=== PATIENT | male | born 1945 | race Caucasian/White ===

== ENCOUNTER 2019-04-20 15:52 | Inpatient (IN) | payer MEDICARE ==
[~2019-04-20] VITALS: Ht 170.2 cm; Wt 74.7 kg
[2019-04-20] MEDS ORDERED: ACETAMINOPHEN 500 MG TABLET ONE (16:02)
--- NOTE | 2019-04-20 16:08 | NUR ---
THIS IS A 73 YO M BIB [facility] FROM [facility] WITH C/O LEFT SIDED WEAKNESS X3 DAYS. [facility] REPORTS HGB OF 7. PATIENT IS IN NO ACUTE DISTRESS. EVEN, UNLABORED BREATHS. CURRENTLY RESTING ON [facility] WITH CALL [facility] IN REACH.
[2019-04-20] MEDS ORDERED: SODIUM CHLORIDE FLUSH 10ML SYR IVF ONE (16:30)
[2019-04-20] MEDS ORDERED: PLEASE ENTER ALLERGIES MC SCH (16:30)
[2019-04-20] MEDS ORDERED: SODIUM CHLORIDE 0.9% 1,000ML IVBOLUS ONE (16:30)
[2019-04-20] MEDS ORDERED: ACETAMINOPHEN 500 MG TABLET PO ONE (16:30)
[2019-04-20] MEDS ORDERED: GADOTERATE 10 MMOL/20 ML SYR ONE (16:41)
[2019-04-20 16:43] LABS: INTERNATIONAL NORMALIZED RATIO 1.11 (0.93-1.1); PROTHROMBIN TIME 11.6 Seconds (9.6-11.5)
[2019-04-20 16:46] LABS: ALANINE AMINOTRANSFERASE 27 U/L (12-78); ANION GAP 6 mmol/L (5-15); BILIRUBIN, DIRECT 0.6 mg/dL (0.1-0.2); CALCIUM 9.3 mg/dL (8.5-10.1); CHLORIDE 106 mmol/L (98-107)
[2019-04-20 16:49] LABS: ALKALINE PHOSPHATASE 129 U/L (45-117); BILIRUBIN,INDIRECT 5.2 mg/dL (0.0-2.0); BILIRUBIN,TOTAL 5.8 mg/dL (0.2-1.0); CREATININE 0.71 mg/dL (0.7-1.3); TOTAL PROTEIN 7.2 g/dL (6.4-8.2)
[2019-04-20] MEDS ORDERED: OMNIPAQUE 350 MG/ML, 100ML BOTTLE ONE (17:27)
[2019-04-20] MEDS ORDERED: MULT-717 PO (17:39)
[2019-04-20] MEDS ORDERED: CHOL200074 PO (17:40)
--- NOTE | 2019-04-20 17:50 | NUR ---
URINE COLLECTED AND WALKED TO LAB.
[2019-04-20 18:01] LABS: MICROSCOPIC AUTO
--- NOTE | 2019-04-20 18:01 | NUR ---
VS UPDATED. PT RESTING WITH NO COMPLAINTS.
[2019-04-20 18:05] LABS: CULTURE INDICATED? YES
--- NOTE | 2019-04-20 18:10 | NUR ---
DR. HAYDEN AT BEDSIDE.
[2019-04-20] MEDS ORDERED: DEXAMETHASONE 4 MG/ML, 1ML ONE (18:19)
--- NOTE | 2019-04-20 18:22 | NUR ---
PHARMACY REQUEST SLIP SENT TO PHARMACY FOR DILANTIN. DECADRON IVP GIVEN.
--- NOTE | 2019-04-20 18:26 | NUR ---
SISTER- ELIANE [phone]
[2019-04-20] MEDS ORDERED: FILTER 0.22 MICRON FOR PHENYTOIN IV PRN (18:30)
[2019-04-20] MEDS ORDERED: DEXAMETHASONE 4 MG/ML, 1ML IVPush ONE (18:30)
[2019-04-20 18:48] LABS: MD YES; MEAN CORPUSCULAR HEMOGLOBIN 33.9 pg (27.5-34.5); MEAN CORPUSCULAR VOLUME 96.8 fL (81-97); RED BLOOD COUNT 1.86 x10^6/uL (4.38-5.82); RED CELL DISTRIBUTION WIDTH 17.7 % (9.4-14.8)
--- NOTE | 2019-04-20 18:49 | NUR ---
ADMITTING MD AT BEDSIDE.
[2019-04-20 18:58] LABS: MEAN PLATELET VOLUME 7.5 fL (7.4-10.4); PLATELET COUNT 257 x10^3/uL (130-400)
[2019-04-20] MEDS ORDERED: PHENYTOIN SODIUM 1,000 MG in SODIUM CHLORIDE 0.9% 100 ML IV ONE (19:00)
[2019-04-20 19:02] LABS: RED BLOOD COUNT 1.86 x10^6/uL (4.38-5.82)
[2019-04-20 19:03] LABS: ABSOLUTE RETICS # 0.106 x10^6/uL (0.5-1.5); RETICULOCYTE COUNT % 5.71 % (0.5-1.5)
[2019-04-20 19:07] LABS: BAND#(MANUAL) 0.26 x10^3/uL; BANDS%(MANUAL) 4 % (0-7); LYMPH#(MANUAL) 0.85 x10^3/uL (1-3.4); LYMPHS% (MANUAL) 13 % (22-44); MONOS#(MANUAL) 0.59 x10^3/uL (0.3-2.7); MONOS% (MANUAL) 9 % (2-9); SEG#(MANUAL) 4.81 x10^3/uL (1.8-6.8); SEGS% (MANUAL) 74 % (42-75)
[2019-04-20 19:08] LABS: <PLATELET ESTIMATE> ADEQUATE; <PLT MORPHOLOGY> NORMAL PLT MORPH; ANISOCYTOSIS 1+; HYPOCHROMIA 1+; MICROCYTOSIS 1+; POLYCHROMASIA 1+; ROULEAUX 1+
--- NOTE | 2019-04-20 19:18 | NUR ---
[facility] TELEPHONE HAND-OFF REPORT TO JUAN ALBERTO BERTRAND.
[2019-04-20] MEDS ORDERED: ONDANSETRON 2MG/ML, 2ML IVPush PRN (19:30)
--- NOTE | 2019-04-20 19:37 | NUR ---
Senait grover rn, updated that pt will receive 1 unit warm blood instead of [address] magdaleno
[2019-04-20 19:59] VITALS: BP 112/62
[2019-04-20 20:18] LABS: D-DIMER 0.97 ug/mlFEU (0.00-0.52); INTERNATIONAL NORMALIZED RATIO 1.15 (0.93-1.1)
[2019-04-20 20:45] VITALS: BP 120/69
[2019-04-20 20:53] LABS: MD YES; MEAN CORPUSCULAR HEMOGLOBIN 33.9 pg (27.5-34.5); MEAN CORPUSCULAR HGB CONC 34.7 g/dL (33.2-36.2); MEAN CORPUSCULAR VOLUME 97.7 fL (81-97); MEAN PLATELET VOLUME 7.8 fL (7.4-10.4); PLATELET COUNT 247 x10^3/uL (130-400); RED BLOOD COUNT 1.91 x10^6/uL (4.38-5.82); RED CELL DISTRIBUTION WIDTH 18.1 % (9.4-14.8)
[2019-04-20] MEDS: PHENYTOIN SODIUM 50 MG/ML, 2ML IVPush SCH (20:57)
[2019-04-20 21:03] LABS: ANISOCYTOSIS 1+; BAND#(MANUAL) 0.22 x10^3/uL; BANDS%(MANUAL) 3 % (0-7); BASOS#(MANUAL) 0.07 x10^3/uL (0-0.1); BASOS% (MANUAL) 1 % (0-1); HYPOCHROMIA 1+; LYMPH#(MANUAL) 1.17 x10^3/uL (1-3.4); LYMPHS% (MANUAL) 16 % (22-44); MICROCYTOSIS 1+; MONOS#(MANUAL) 0.51 x10^3/uL (0.3-2.7); MONOS% (MANUAL) 7 % (2-9); SEG#(MANUAL) 5.33 x10^3/uL (1.8-6.8); SEGS% (MANUAL) 73 % (42-75)
[2019-04-20 21:04] LABS: <PLATELET ESTIMATE> ADEQUATE; <PLT MORPHOLOGY> NORMAL PLT MORPH; POLYCHROMASIA 1+
[2019-04-20 22:20] VITALS: BP 118/68
[2019-04-20 22:35] VITALS: BP 116/65
[2019-04-20 22:50] VITALS: BP 119/70
[2019-04-20 23:40] VITALS: BP 115/63
[2019-04-21 01:40] VITALS: BP 118/68
[2019-04-21] MEDS: DEXAMETHASONE 4 MG/ML, 1ML IVPush SCH ×4 (01:48→19:22)
[2019-04-21 04:33] LABS: ANION GAP 5 mmol/L (5-15); CALCIUM 9.1 mg/dL (8.5-10.1); CHLORIDE 109 mmol/L (98-107); CREATININE 0.68 mg/dL (0.7-1.3)
[2019-04-21 05:02] LABS: ABSOLUTE RETICS # 0.048 x10^6/uL (0.5-1.5); RETICULOCYTE COUNT % 5.61 % (0.5-1.5)
[2019-04-21 06:09] LABS: MEAN CORPUSCULAR HEMOGLOBIN 33.2 pg (27.5-34.5); MEAN CORPUSCULAR HGB CONC 34.5 g/dL (33.2-36.2); MEAN CORPUSCULAR VOLUME 96.1 fL (81-97); MEAN PLATELET VOLUME 8.1 fL (7.4-10.4); PLATELET COUNT 200 x10^3/uL (130-400); RED BLOOD COUNT 2.32 x10^6/uL (4.38-5.82); RED CELL DISTRIBUTION WIDTH 17.1 % (9.4-14.8)
[2019-04-21 06:11] LABS: MD YES
[2019-04-21 06:13] LABS: ANISOCYTOSIS 1+; BAND#(MANUAL) 0.17 x10^3/uL; BANDS%(MANUAL) 3 % (0-7); HYPOCHROMIA 1+; LYMPHS% (MANUAL) 7 % (22-44); MICROCYTOSIS 1+; MONOS#(MANUAL) 0.29 x10^3/uL (0.3-2.7); MONOS% (MANUAL) 5 % (2-9); POLYCHROMASIA 1+; SEG#(MANUAL) 4.85 x10^3/uL (1.8-6.8); SEGS% (MANUAL) 85 % (42-75)
[2019-04-21 06:14] LABS: <PLATELET ESTIMATE> ADEQUATE; <PLT MORPHOLOGY> NORMAL PLT MORPH
[2019-04-21 06:16] LABS: RED BLOOD COUNT 2.32 x10^6/uL (4.38-5.82)
[2019-04-21 07:31] VITALS: BP 129/62
[2019-04-21] MEDS: PHENYTOIN SODIUM 50 MG/ML, 2ML IVPush SCH ×2 (07:48→21:16)
[2019-04-21 13:18] VITALS: BP 117/58
[2019-04-21] MEDS ORDERED: MIDAZOLAM 1 MG/ML, 5ML ONE (13:48)
[2019-04-21] MEDS ORDERED: FLUMAZENIL 0.1 MG/1 ML, 5ML ONE (13:48)
[2019-04-21] MEDS ORDERED: FENTANYL PF 100 MCG/2ML ONE (13:48)
[2019-04-21] MEDS ORDERED: NALOXONE 1 MG/ML, 2ML ONE (13:48)
[2019-04-21 19:51] VITALS: BP 109/49
[2019-04-22 02:03] VITALS: BP 118/59
[2019-04-22] MEDS: DEXAMETHASONE 4 MG/ML, 1ML IVPush SCH ×4 (02:08→20:26)
[2019-04-22 04:48] LABS: CHLORIDE 108 mmol/L (98-107)
[2019-04-22 04:55] LABS: ALANINE AMINOTRANSFERASE 22 U/L (12-78); ALBUMIN 3.6 g/dL (3.4-5.0); ALKALINE PHOSPHATASE 110 U/L (45-117); ANION GAP 4 mmol/L (5-15); BILIRUBIN,TOTAL 2.3 mg/dL (0.2-1.0); TOTAL PROTEIN 6.8 g/dL (6.4-8.2)
[2019-04-22 05:47] LABS: MEAN CORPUSCULAR HEMOGLOBIN 32.6 pg (27.5-34.5); MEAN CORPUSCULAR HGB CONC 32.9 g/dL (33.2-36.2); MEAN CORPUSCULAR VOLUME 99.1 fL (81-97); MEAN PLATELET VOLUME 8.6 fL (7.4-10.4); PLATELET COUNT 197 x10^3/uL (130-400); RED BLOOD COUNT 2.33 x10^6/uL (4.38-5.82)
[2019-04-22 06:07] LABS: MD YES
[2019-04-22 06:08] LABS: RED CELL DISTRIBUTION WIDTH 17.2 % (9.4-14.8)
[2019-04-22 06:09] LABS: MONOS#(MANUAL) 0.49 x10^3/uL (0.3-2.7); MONOS% (MANUAL) 5 % (2-9)
[2019-04-22 06:10] LABS: ANISOCYTOSIS 1+; HYPOCHROMIA 1+; LYMPH#(MANUAL) 0.29 x10^3/uL (1-3.4); LYMPHS% (MANUAL) 3 % (22-44); MICROCYTOSIS 1+; POLYCHROMASIA 1+; SEG#(MANUAL) 8.92 x10^3/uL (1.8-6.8); SEGS% (MANUAL) 92 % (42-75)
[2019-04-22 06:11] LABS: <PLATELET ESTIMATE> ADEQUATE; <PLT MORPHOLOGY> NORMAL PLT MORPH
[2019-04-22 06:48] VITALS: BP 136/63
[2019-04-22] MEDS: FOLIC ACID 1 MG TABLET PO SCH (09:40)
[2019-04-22] MEDS: PHENYTOIN SODIUM 50 MG/ML, 2ML IVPush SCH ×2 (10:14→20:26)
[2019-04-22 13:31] VITALS: BP 118/73
[2019-04-22] MEDS ORDERED: GADOTERATE 10 MMOL/20 ML SYR ONE (18:46)
[2019-04-22 19:32] VITALS: BP 128/66
[2019-04-23] MEDS: DEXAMETHASONE 4 MG/ML, 1ML IVPush SCH ×4 (02:10→21:00)
[2019-04-23 02:22] VITALS: BP 125/69
[2019-04-23 06:47] VITALS: BP 140/66
[2019-04-23] MEDS: FOLIC ACID 1 MG TABLET PO SCH (09:00)
[2019-04-23 09:10] LABS: INTERNATIONAL NORMALIZED RATIO 1.02 (0.93-1.1); PROTHROMBIN TIME 10.7 Seconds (9.6-11.5)
[2019-04-23 09:13] LABS: ALBUMIN 3.6 g/dL (3.4-5.0); ANION GAP 4 mmol/L (5-15); CALCIUM 9.2 mg/dL (8.5-10.1); CHLORIDE 109 mmol/L (98-107)
[2019-04-23] MEDS: PHENYTOIN SODIUM 50 MG/ML, 2ML IVPush SCH ×2 (09:14→22:08)
[2019-04-23 09:16] LABS: ALANINE AMINOTRANSFERASE 22 U/L (12-78); ALKALINE PHOSPHATASE 122 U/L (45-117); BILIRUBIN,TOTAL 1.7 mg/dL (0.2-1.0); CREATININE 0.71 mg/dL (0.7-1.3); TOTAL PROTEIN 6.6 g/dL (6.4-8.2)
[2019-04-23] MEDS ORDERED: MIDAZOLAM 1 MG/ML, 5ML ONE (09:44)
[2019-04-23] MEDS ORDERED: FENTANYL PF 100 MCG/2ML ONE (09:44)
[2019-04-23] MEDS ORDERED: FLUMAZENIL 0.1 MG/1 ML, 5ML ONE (09:45)
[2019-04-23] MEDS ORDERED: NALOXONE 1 MG/ML, 2ML ONE (09:45)
[2019-04-23 09:47] LABS: MEAN CORPUSCULAR HEMOGLOBIN 32.7 pg (27.5-34.5); MEAN CORPUSCULAR HGB CONC 33.9 g/dL (33.2-36.2); MEAN CORPUSCULAR VOLUME 96.5 fL (81-97); RED BLOOD COUNT 2.33 x10^6/uL (4.38-5.82); RED CELL DISTRIBUTION WIDTH 16.9 % (9.4-14.8)
[2019-04-23 09:49] LABS: <PLT MORPHOLOGY> NORMAL PLT MORPH; ANISOCYTOSIS 1+; BASOPHILS # (AUTO) 0.02 x10^3/uL (0-0.1); BASOPHILS % (AUTO) 0 % (0-1); EOSINOPHILS % (AUTO) 0 % (1-7); HYPOCHROMIA 1+; LYMPHOCYTES # (AUTO) 1.19 x10^3/uL (1-3.4); LYMPHOCYTES % (AUTO) 14 % (22-44); MD MORPH REVIEW ONLY; MEAN PLATELET VOLUME 8.4 fL (7.4-10.4); MONOCYTES # (AUTO) 0.57 x10^3/uL (0.2-0.8); MONOCYTES % (AUTO) 7 % (2-9); NEUTROPHILS # (AUTO) 6.63 x10^3/uL (1.8-6.8); NEUTROPHILS % (AUTO) 79 % (42-75); POLYCHROMASIA 1+
[2019-04-23 09:58] LABS: <PLATELET ESTIMATE> DECREASED; PLATELET COUNT 105 x10^3/uL (130-400)
[2019-04-23 12:03] VITALS: BP 122/64
[2019-04-23 15:13] VITALS: BP 128/66
[2019-04-23] MEDS ORDERED: FENTANYL PF 250 MCG/5ML ONE ×2 (15:23→18:15)
[2019-04-23 15:37] VITALS: BP 124/59
[2019-04-23] MEDS ORDERED: THROMBIN 5,000 UNIT VIAL TP ONE (16:28)
[2019-04-23] MEDS ORDERED: BUPIVACAINE/PF 0.5% ONE (16:28)
[2019-04-23] MEDS ORDERED: BACITRACIN 50,000 UNIT ONE (16:29)
[2019-04-23] MEDS ORDERED: EPINEPHRINE 1 MG/ML, 1ML ONE (16:29)
[2019-04-23] MEDS ORDERED: MANNITOL PMX 20% 500 ML ONE (17:15)
[2019-04-23] MEDS ORDERED: LIDOCAINE 2% 100MG/5ML SYRINGE ONE (17:18)
[2019-04-23] MEDS ORDERED: hydrALAzine 20 MG/ML, 1ML ONE (17:18)
[2019-04-23] MEDS ORDERED: LEVETIRACETAM 1,000 MG in SODIUM CHLORIDE 0.9% 100 ML IV STA (18:11)
[2019-04-23] MEDS ORDERED: FENTANYL PF 100 MCG/2ML IV PRN (19:00)
[2019-04-23] MEDS ORDERED: HYDROmorphone 2 MG/ML, 1ML IVPush PRN (19:00)
[2019-04-23] MEDS ORDERED: ALBUTEROL/IPRATROPIUM 2.5MG/0.5MG, 3 ML NPPB PRN (19:00)
[2019-04-23] MEDS ORDERED: OXYcodone 5 MG/5 ML ORAL.SOL UDC PO PRN (19:00)
[2019-04-23] MEDS ORDERED: PROMETHAZINE 25 MG/ML, 1ML IV PRN (19:00)
[2019-04-23] MEDS ORDERED: LABETALOL 5MG/ML, 20ML IV PRN (19:00)
[2019-04-23] MEDS ORDERED: ACETAMINOPHEN 325 MG TABLET PO PRN (19:00)
[2019-04-23] MEDS ORDERED: hydrALAzine 20 MG/ML, 1ML IV PRN (19:00)
[2019-04-23] MEDS ORDERED: MIDAZOLAM 1 MG/ML, 2ML IV PRN (19:00)
[2019-04-23] MEDS ORDERED: ROCURONIUM 10MG/ML,5ML ONE (20:09)
[2019-04-23] MEDS ORDERED: PROPOFOL 10 MG/ML, 20ML ONE (20:09)
[2019-04-23] MEDS ORDERED: CEFAZOLIN 1,000 MG ONE (20:09)
[2019-04-23] MEDS ORDERED: NEOSTIGMINE 1 MG/ML, 10ML ONE (20:09)
[2019-04-23] MEDS ORDERED: ONDANSETRON 2MG/ML, 2ML ONE (20:09)
[2019-04-23] MEDS ORDERED: DEXAMETHASONE 4 MG/ML, 1ML ONE (20:09)
[2019-04-23] MEDS ORDERED: GLYCOPYRROLATE 0.2MG/1ML, 5ML ONE (20:09)
[2019-04-23] MEDS ORDERED: CEFAZOLIN 1,000 MG IM SCH ×2 (20:30)
[2019-04-23] MEDS: DEXAMETHASONE 4 MG/ML, 1ML IV SCH (21:36)
[2019-04-24 00:49] LABS: MD YES; MEAN CORPUSCULAR HEMOGLOBIN 32.5 pg (27.5-34.5); MEAN CORPUSCULAR HGB CONC 33.7 g/dL (33.2-36.2); MEAN CORPUSCULAR VOLUME 96.6 fL (81-97); PLATELET COUNT 260 x10^3/uL (130-400); RED BLOOD COUNT 3.05 x10^6/uL (4.38-5.82); RED CELL DISTRIBUTION WIDTH 17.5 % (9.4-14.8)
[2019-04-24 01:43] LABS: ANISOCYTOSIS 1+; BANDS%(MANUAL) 1 % (0-7); LYMPHS% (MANUAL) 4 % (22-44); MONOS#(MANUAL) 0.59 x10^3/uL (0.3-2.7); MONOS% (MANUAL) 6 % (2-9); SEG#(MANUAL) 8.81 x10^3/uL (1.8-6.8); SEGS% (MANUAL) 89 % (42-75)
[2019-04-24 01:44] LABS: <PLATELET ESTIMATE> ADEQUATE; HYPOCHROMIA 1+; POLYCHROMASIA 1+; SMALL PLATELETS 1+
[2019-04-24] MEDS: CEFAZOLIN PMX 1GM/50ML 50 ML IV SCH ×3 (01:50→19:26)
[2019-04-24] MEDS: HYDROcodone/APAP 5/325 TABLET PO PRN ×5 (01:58→19:26)
[2019-04-24] MEDS ORDERED: CEFAZOLIN PMX 1GM/50ML 50 ML IV SCH (04:00)
[2019-04-24 04:34] LABS: ALBUMIN 3.3 g/dL (3.4-5.0); ANION GAP 5 mmol/L (5-15); CALCIUM 8.5 mg/dL (8.5-10.1); CHLORIDE 110 mmol/L (98-107)
[2019-04-24 04:38] LABS: ALANINE AMINOTRANSFERASE 23 U/L (12-78); ALKALINE PHOSPHATASE 121 U/L (45-117); BILIRUBIN,TOTAL 1.6 mg/dL (0.2-1.0); CREATININE 0.69 mg/dL (0.7-1.3); TOTAL PROTEIN 6.7 g/dL (6.4-8.2)
[2019-04-24 04:59] LABS: BASOPHILS # (AUTO) 0.02 x10^3/uL (0-0.1); BASOPHILS % (AUTO) 0 % (0-1); EOSINOPHILS % (AUTO) 0 % (1-7); LYMPHOCYTES # (AUTO) 0.96 x10^3/uL (1-3.4); LYMPHOCYTES % (AUTO) 9 % (22-44); MD NO; MEAN CORPUSCULAR HEMOGLOBIN 32.5 pg (27.5-34.5); MEAN CORPUSCULAR HGB CONC 34.6 g/dL (33.2-36.2); MEAN PLATELET VOLUME 6.7 fL (7.4-10.4); MONOCYTES # (AUTO) 0.76 x10^3/uL (0.2-0.8); MONOCYTES % (AUTO) 7 % (2-9); NEUTROPHILS # (AUTO) 8.77 x10^3/uL (1.8-6.8); NEUTROPHILS % (AUTO) 84 % (42-75); PLATELET COUNT 276 x10^3/uL (130-400); RED BLOOD COUNT 3.13 x10^6/uL (4.38-5.82); RED CELL DISTRIBUTION WIDTH 17.5 % (9.4-14.8)
[2019-04-24] MEDS: DEXAMETHASONE 4 MG/ML, 1ML IV SCH ×3 (08:59→20:21)
[2019-04-24] MEDS: PHENYTOIN SODIUM 50 MG/ML, 2ML IVPush SCH ×2 (08:59→20:21)
[2019-04-24] MEDS: FOLIC ACID 1 MG TABLET PO SCH (08:59)
[2019-04-24] MEDS ORDERED: GADOTERATE 7.5 MMOL/15 ML SYR ONE (10:37)
[2019-04-24 19:55] VITALS: BP 131/62
[2019-04-25 01:12] VITALS: BP 123/66
[2019-04-25] MEDS: CEFAZOLIN PMX 1GM/50ML 50 ML IV SCH (03:10)
[2019-04-25 05:14] LABS: ALANINE AMINOTRANSFERASE 23 U/L (12-78); ALBUMIN 3.3 g/dL (3.4-5.0); ANION GAP 6 mmol/L (5-15); CALCIUM 8.4 mg/dL (8.5-10.1); CHLORIDE 107 mmol/L (98-107); CREATININE 0.68 mg/dL (0.7-1.3)
[2019-04-25 05:16] LABS: ALKALINE PHOSPHATASE 121 U/L (45-117); TOTAL PROTEIN 6.4 g/dL (6.4-8.2)
[2019-04-25 05:56] LABS: MEAN CORPUSCULAR HEMOGLOBIN 32.3 pg (27.5-34.5); MEAN CORPUSCULAR HGB CONC 34.1 g/dL (33.2-36.2); MEAN CORPUSCULAR VOLUME 94.7 fL (81-97); MEAN PLATELET VOLUME 6.6 fL (7.4-10.4); PLATELET COUNT 272 x10^3/uL (130-400); RED BLOOD COUNT 2.99 x10^6/uL (4.38-5.82); RED CELL DISTRIBUTION WIDTH 17.4 % (9.4-14.8)
[2019-04-25 06:01] LABS: BASOPHILS # (AUTO) 0.01 x10^3/uL (0-0.1); BASOPHILS % (AUTO) 0 % (0-1); EOSINOPHILS % (AUTO) 0 % (1-7); LYMPHOCYTES # (AUTO) 1.28 x10^3/uL (1-3.4); LYMPHOCYTES % (AUTO) 15 % (22-44); MD SCAN; MONOCYTES # (AUTO) 0.83 x10^3/uL (0.2-0.8); MONOCYTES % (AUTO) 10 % (2-9); NEUTROPHILS # (AUTO) 6.38 x10^3/uL (1.8-6.8); NEUTROPHILS % (AUTO) 75 % (42-75)
[2019-04-25 06:47] VITALS: BP 136/61
[2019-04-25] MEDS: HYDROcodone/APAP 5/325 TABLET PO PRN ×2 (09:48→19:29)
[2019-04-25] MEDS: PHENYTOIN SODIUM 50 MG/ML, 2ML IVPush SCH ×2 (11:45→21:20)
[2019-04-25] MEDS: FOLIC ACID 1 MG TABLET PO SCH (11:46)
[2019-04-25] MEDS: DEXAMETHASONE 4 MG/ML, 1ML IV SCH ×2 (11:46→18:28)
[2019-04-25 12:52] VITALS: BP 138/62
[2019-04-25 18:44] VITALS: BP 138/66
[2019-04-26 01:05] VITALS: BP 122/62
[2019-04-26] MEDS: DEXAMETHASONE 4 MG/ML, 1ML IV SCH ×4 (01:54→20:11)
[2019-04-26] MEDS: HYDROcodone/APAP 5/325 TABLET PO PRN (04:28)
[2019-04-26 04:57] LABS: ALANINE AMINOTRANSFERASE 28 U/L (12-78); ALBUMIN 3.6 g/dL (3.4-5.0); ANION GAP 6 mmol/L (5-15); CALCIUM 9.1 mg/dL (8.5-10.1); CHLORIDE 104 mmol/L (98-107); CREATININE 0.72 mg/dL (0.7-1.3)
[2019-04-26 04:59] LABS: ALKALINE PHOSPHATASE 137 U/L (45-117); BILIRUBIN,TOTAL 2.9 mg/dL (0.2-1.0); TOTAL PROTEIN 7.2 g/dL (6.4-8.2)
[2019-04-26 06:29] LABS: MEAN CORPUSCULAR HEMOGLOBIN 32.3 pg (27.5-34.5); MEAN CORPUSCULAR HGB CONC 33.4 g/dL (33.2-36.2); MEAN CORPUSCULAR VOLUME 96.9 fL (81-97); RED BLOOD COUNT 3.41 x10^6/uL (4.38-5.82); RED CELL DISTRIBUTION WIDTH 16.5 % (9.4-14.8)
[2019-04-26 06:48] VITALS: BP 131/72
[2019-04-26 07:36] LABS: PLATELET COUNT 286 x10^3/uL (130-400)
[2019-04-26 07:40] LABS: MEAN PLATELET VOLUME 6.9 fL (7.4-10.4)
[2019-04-26 07:41] LABS: BASOPHILS # (AUTO) 0.01 x10^3/uL (0-0.1); BASOPHILS % (AUTO) 0 % (0-1); EOSINOPHILS % (AUTO) 0 % (1-7); LYMPHOCYTES # (AUTO) 1.44 x10^3/uL (1-3.4); LYMPHOCYTES % (AUTO) 13 % (22-44); MD SCAN; MONOCYTES # (AUTO) 0.59 x10^3/uL (0.2-0.8); MONOCYTES % (AUTO) 5 % (2-9); NEUTROPHILS # (AUTO) 9.15 x10^3/uL (1.8-6.8); NEUTROPHILS % (AUTO) 82 % (42-75)
[2019-04-26] MEDS ORDERED: BISACODYL 10 MG SUPP PR PRN (08:00)
[2019-04-26] MEDS ORDERED: POLYETHYLENE GLYCOL 17 GM PACKET PO ONE (08:00)
[2019-04-26] MEDS: PHENYTOIN SODIUM 50 MG/ML, 2ML IVPush SCH ×2 (09:20→20:11)
[2019-04-26] MEDS: DOCUSATE 100 MG CAPSULE PO SCH ×2 (09:21→20:11)
[2019-04-26] MEDS: FOLIC ACID 1 MG TABLET PO SCH (09:21)
[2019-04-26 12:48] VITALS: BP 116/64
[2019-04-26 18:57] VITALS: BP 121/69
[2019-04-27 00:35] VITALS: BP 126/73
[2019-04-27 04:33] LABS: ANION GAP 6 mmol/L (5-15); CALCIUM 8.8 mg/dL (8.5-10.1); CHLORIDE 105 mmol/L (98-107); CREATININE 0.66 mg/dL (0.7-1.3)
[2019-04-27 04:34] LABS: ALANINE AMINOTRANSFERASE 45 U/L (12-78); ALBUMIN 3.3 g/dL (3.4-5.0)
[2019-04-27 04:35] LABS: ALKALINE PHOSPHATASE 129 U/L (45-117); BILIRUBIN,TOTAL 3.1 mg/dL (0.2-1.0); TOTAL PROTEIN 6.7 g/dL (6.4-8.2)
[2019-04-27 05:08] LABS: MEAN CORPUSCULAR HEMOGLOBIN 32.1 pg (27.5-34.5); MEAN CORPUSCULAR HGB CONC 33.9 g/dL (33.2-36.2); MEAN CORPUSCULAR VOLUME 94.8 fL (81-97); PLATELET COUNT 226 x10^3/uL (130-400); RED BLOOD COUNT 2.78 x10^6/uL (4.38-5.82); RED CELL DISTRIBUTION WIDTH 16.5 % (9.4-14.8)
[2019-04-27 05:11] LABS: ABSOLUTE RETICS # 0.078 x10^6/uL (0.5-1.5); RED BLOOD COUNT 2.78 x10^6/uL (4.38-5.82); RETICULOCYTE COUNT % 4.17 % (0.5-1.5)
[2019-04-27] MEDS: HYDROcodone/APAP 5/325 TABLET PO PRN (05:32)
[2019-04-27 05:47] LABS: BASOPHILS # (AUTO) 0.03 x10^3/uL (0-0.1); BASOPHILS % (AUTO) 0 % (0-1); EOSINOPHILS # (AUTO) 0.07 x10^3/uL (0-0.4); EOSINOPHILS % (AUTO) 1 % (1-7); LYMPHOCYTES # (AUTO) 1.37 x10^3/uL (1-3.4); LYMPHOCYTES % (AUTO) 19 % (22-44); MD SCAN; MONOCYTES # (AUTO) 0.72 x10^3/uL (0.2-0.8); MONOCYTES % (AUTO) 10 % (2-9); NEUTROPHILS # (AUTO) 5.13 x10^3/uL (1.8-6.8); NEUTROPHILS % (AUTO) 70 % (42-75)
[2019-04-27] MEDS: DEXAMETHASONE 4 MG/ML, 1ML IV SCH ×3 (07:52→20:55)
[2019-04-27] MEDS: FOLIC ACID 1 MG TABLET PO SCH (07:52)
[2019-04-27] MEDS: PHENYTOIN SODIUM 50 MG/ML, 2ML IVPush SCH ×2 (07:52→20:55)
[2019-04-27] MEDS: DOCUSATE 100 MG CAPSULE PO SCH ×2 (07:52→20:55)
[2019-04-27 09:30] VITALS: BP 128/68
[2019-04-27] MEDS ORDERED: POLYETHYLENE GLYCOL 17 GM PACKET PO PRN (12:30)
[2019-04-27] MEDS ORDERED: SENNOSIDES 8.8 MG/5 ML ORAL SOL PO PRN (12:30)
[2019-04-27 13:58] VITALS: BP 124/70
[2019-04-27] MEDS: POLYETHYLENE GLYCOL 17 GM PACKET PO PRN (14:18)
[2019-04-27] MEDS ORDERED: SENNOSIDES 8.6 MG TABLET PO PRN (14:30)
[2019-04-27 18:38] VITALS: BP 118/64
[2019-04-28 00:49] VITALS: BP 125/73
[2019-04-28 05:05] LABS: CHLORIDE 106 mmol/L (98-107)
[2019-04-28 05:36] LABS: ALANINE AMINOTRANSFERASE 87 U/L (12-78); ALBUMIN 3.4 g/dL (3.4-5.0); ALKALINE PHOSPHATASE 136 U/L (45-117); ANION GAP 7 mmol/L (5-15); CALCIUM 8.8 mg/dL (8.5-10.1); CREATININE 0.63 mg/dL (0.7-1.3); TOTAL PROTEIN 6.6 g/dL (6.4-8.2)
[2019-04-28 05:45] LABS: ABSOLUTE RETICS # 0.09 x10^6/uL (0.5-1.5); RETICULOCYTE COUNT % 4.28 % (0.5-1.5)
[2019-04-28 06:09] LABS: FREE T4 (FREE THYROXINE) 1.22 ng/dL (0.76-1.46)
[2019-04-28 06:34] LABS: RED BLOOD COUNT 2.89 x10^6/uL (4.38-5.82)
[2019-04-28 06:35] LABS: MEAN CORPUSCULAR HEMOGLOBIN 31.7 pg (27.5-34.5); MEAN CORPUSCULAR HGB CONC 33.8 g/dL (33.2-36.2); MEAN CORPUSCULAR VOLUME 93.9 fL (81-97); RED BLOOD COUNT 2.89 x10^6/uL (4.38-5.82)
[2019-04-28 06:41] VITALS: BP 126/75
[2019-04-28 07:41] LABS: BASOPHILS # (AUTO) 0.05 x10^3/uL (0-0.1); BASOPHILS % (AUTO) 1 % (0-1); EOSINOPHILS % (AUTO) 0 % (1-7); LYMPHOCYTES # (AUTO) 1.21 x10^3/uL (1-3.4); LYMPHOCYTES % (AUTO) 18 % (22-44); MD SCAN; MEAN PLATELET VOLUME 6.4 fL (7.4-10.4); MONOCYTES # (AUTO) 0.64 x10^3/uL (0.2-0.8); MONOCYTES % (AUTO) 10 % (2-9); NEUTROPHILS # (AUTO) 4.74 x10^3/uL (1.8-6.8); NEUTROPHILS % (AUTO) 71 % (42-75); PLATELET COUNT 257 x10^3/uL (130-400)
[2019-04-28] MEDS: DEXAMETHASONE 4 MG/ML, 1ML IV SCH ×3 (09:31→21:07)
[2019-04-28] MEDS: DOCUSATE 100 MG CAPSULE PO SCH ×2 (09:31→21:07)
[2019-04-28] MEDS: PHENYTOIN SODIUM 50 MG/ML, 2ML IVPush SCH ×2 (09:31→21:07)
[2019-04-28] MEDS: FOLIC ACID 1 MG TABLET PO SCH (09:31)
[2019-04-28 12:25] VITALS: BP 126/67
[2019-04-28 20:48] VITALS: BP 130/67
[2019-04-29 01:12] VITALS: BP 135/74
[2019-04-29 05:59] LABS: ANION GAP 8 mmol/L (5-15); CALCIUM 8.7 mg/dL (8.5-10.1); CHLORIDE 106 mmol/L (98-107)
[2019-04-29 06:54] VITALS: BP 136/74
[2019-04-29 06:54] LABS: ABSOLUTE RETICS # 0.092 x10^6/uL (0.5-1.5); RETICULOCYTE COUNT % 4.09 % (0.5-1.5)
[2019-04-29 06:55] LABS: RED BLOOD COUNT 2.25 x10^6/uL (4.38-5.82)
[2019-04-29 07:17] LABS: MEAN CORPUSCULAR HEMOGLOBIN 37.1 pg (27.5-34.5); MEAN CORPUSCULAR HGB CONC 35.9 g/dL (33.2-36.2); MEAN CORPUSCULAR VOLUME 103.1 fL (81-97); MEAN PLATELET VOLUME 6.7 fL (7.4-10.4); PLATELET COUNT 281 x10^3/uL (130-400); RED BLOOD COUNT 2.25 x10^6/uL (4.38-5.82); RED CELL DISTRIBUTION WIDTH 17.3 % (9.4-14.8)
[2019-04-29] MEDS: PHENYTOIN SODIUM 50 MG/ML, 2ML IVPush SCH ×2 (07:26→20:50)
[2019-04-29] MEDS: DOCUSATE 100 MG CAPSULE PO SCH ×2 (07:26→20:51)
[2019-04-29] MEDS: DEXAMETHASONE 4 MG/ML, 1ML IV SCH ×3 (07:26→20:51)
[2019-04-29] MEDS: FOLIC ACID 1 MG TABLET PO SCH (07:26)
[2019-04-29 09:39] LABS: BASOPHILS # (AUTO) 0.01 x10^3/uL (0-0.1); BASOPHILS % (AUTO) 0 % (0-1); EOSINOPHILS # (AUTO) 0.01 x10^3/uL (0-0.4); EOSINOPHILS % (AUTO) 0 % (1-7); LYMPHOCYTES # (AUTO) 1.54 x10^3/uL (1-3.4); LYMPHOCYTES % (AUTO) 21 % (22-44); MD MORPH REVIEW ONLY; MONOCYTES # (AUTO) 0.84 x10^3/uL (0.2-0.8); MONOCYTES % (AUTO) 11 % (2-9); NEUTROPHILS % (AUTO) 68 % (42-75)
[2019-04-29 09:46] LABS: <PLATELET ESTIMATE> ADEQUATE; <PLT MORPHOLOGY> NORMAL PLT MORPH
[2019-04-29 12:20] VITALS: BP 136/66
[2019-04-29 21:08] VITALS: BP 127/64
[2019-04-30 00:27] VITALS: BP 122/70
[2019-04-30 06:39] VITALS: BP 128/64
[2019-04-30 09:12] LABS: ANION GAP 8 mmol/L (5-15); CALCIUM 8.9 mg/dL (8.5-10.1); CHLORIDE 104 mmol/L (98-107); CREATININE 0.87 mg/dL (0.7-1.3)
[2019-04-30 09:49] LABS: MEAN CORPUSCULAR HGB CONC 35.6 g/dL (33.2-36.2); MEAN CORPUSCULAR VOLUME 95.5 fL (81-97); MEAN PLATELET VOLUME 6.7 fL (7.4-10.4); PLATELET COUNT 263 x10^3/uL (130-400); RED BLOOD COUNT 2.51 x10^6/uL (4.38-5.82); RED CELL DISTRIBUTION WIDTH 17.1 % (9.4-14.8)
[2019-04-30] MEDS: FOLIC ACID 1 MG TABLET PO SCH (09:59)
[2019-04-30] MEDS: DOCUSATE 100 MG CAPSULE PO SCH ×2 (09:59→21:27)
[2019-04-30] MEDS: DEXAMETHASONE 4 MG/ML, 1ML IV SCH (10:00)
[2019-04-30] MEDS: PHENYTOIN SODIUM 50 MG/ML, 2ML IVPush SCH ×2 (10:00→21:28)
[2019-04-30 10:06] LABS: MD YES
[2019-04-30 10:09] LABS: RED BLOOD COUNT 2.52 x10^6/uL (4.38-5.82)
[2019-04-30 10:20] LABS: <PLATELET ESTIMATE> ADEQUATE; <PLT MORPHOLOGY> NORMAL PLT MORPH; ANISOCYTOSIS 1+; LYMPH#(MANUAL) 1.68 x10^3/uL (1-3.4); LYMPHS% (MANUAL) 20 % (22-44); MONOS#(MANUAL) 0.34 x10^3/uL (0.3-2.7); MONOS% (MANUAL) 4 % (2-9); SEG#(MANUAL) 6.38 x10^3/uL (1.8-6.8); SEGS% (MANUAL) 76 % (42-75)
[2019-04-30 11:30] LABS: ABSOLUTE RETICS # 0.078 x10^6/uL (0.5-1.5); RETICULOCYTE COUNT % 3.09 % (0.5-1.5)
[2019-04-30 12:40] VITALS: BP 113/67
[2019-04-30] MEDS: DEXAMETHASONE 4 MG TABLET PO SCH (18:17)
[2019-04-30] MEDS: POLYETHYLENE GLYCOL 17 GM PACKET PO PRN (19:45)
[2019-04-30 21:11] VITALS: BP 118/62
[2019-04-30 21:16] VITALS: BP 131/89
[2019-05-01 00:09] VITALS: BP 143/67
[2019-05-01 06:35] VITALS: BP 124/66
[2019-05-01 07:09] LABS: ABSOLUTE RETICS # 0.061 x10^6/uL (0.5-1.5); RETICULOCYTE COUNT % 5.26 % (0.5-1.5)
[2019-05-01 07:13] LABS: ALANINE AMINOTRANSFERASE 91 U/L (12-78); ALBUMIN 3.1 g/dL (3.4-5.0); ANION GAP 4 mmol/L (5-15); CALCIUM 8.5 mg/dL (8.5-10.1); CHLORIDE 107 mmol/L (98-107); CREATININE 0.69 mg/dL (0.7-1.3)
[2019-05-01 07:15] LABS: ALKALINE PHOSPHATASE 137 U/L (45-117); BILIRUBIN,TOTAL 2.1 mg/dL (0.2-1.0)
[2019-05-01] MEDS: PHENYTOIN SODIUM 50 MG/ML, 2ML IVPush SCH ×2 (07:42→20:23)
[2019-05-01] MEDS: DOCUSATE 100 MG CAPSULE PO SCH ×2 (07:42→20:23)
[2019-05-01] MEDS: DEXAMETHASONE 4 MG TABLET PO SCH ×3 (07:42→16:49)
[2019-05-01] MEDS: FOLIC ACID 1 MG TABLET PO SCH (07:42)
[2019-05-01] MEDS: POLYETHYLENE GLYCOL 17 GM PACKET PO PRN (07:42)
[2019-05-01 08:32] LABS: MD YES; MEAN CORPUSCULAR HEMOGLOBIN 32.2 pg (27.5-34.5); MEAN CORPUSCULAR HGB CONC 33.7 g/dL (33.2-36.2); MEAN CORPUSCULAR VOLUME 95.6 fL (81-97); MEAN PLATELET VOLUME 7.1 fL (7.4-10.4); PLATELET COUNT 241 x10^3/uL (130-400); RED BLOOD COUNT 2.56 x10^6/uL (4.38-5.82); RED CELL DISTRIBUTION WIDTH 17.1 % (9.4-14.8)
[2019-05-01 08:33] LABS: RED BLOOD COUNT 2.56 x10^6/uL (4.38-5.82)
[2019-05-01 08:50] LABS: BAND#(MANUAL) 0.16 x10^3/uL; BANDS%(MANUAL) 2 % (0-7); LYMPHS% (MANUAL) 28 % (22-44); MONOS#(MANUAL) 0.49 x10^3/uL (0.3-2.7); MONOS% (MANUAL) 6 % (2-9); SEG#(MANUAL) 5.25 x10^3/uL (1.8-6.8); SEGS% (MANUAL) 64 % (42-75)
[2019-05-01 08:51] LABS: <PLATELET ESTIMATE> ADEQUATE; <PLT MORPHOLOGY> NORMAL PLT MORPH; ANISOCYTOSIS 1+; POLYCHROMASIA 1+
[2019-05-01 12:30] VITALS: BP 124/70
[2019-05-01] MEDS: AZITHROMYCIN 500 MG TABLET PO SCH (12:33)
[2019-05-01 18:48] VITALS: BP 111/61
[2019-05-02 00:10] VITALS: BP 127/68
[2019-05-02 06:55] VITALS: BP 133/66
[2019-05-02 09:22] LABS: RED BLOOD COUNT 2.45 x10^6/uL (4.38-5.82)
[2019-05-02] MEDS: FOLIC ACID 1 MG TABLET PO SCH (09:24)
[2019-05-02] MEDS: DEXAMETHASONE 4 MG TABLET PO SCH ×3 (09:24→17:54)
[2019-05-02] MEDS: DOCUSATE 100 MG CAPSULE PO SCH ×2 (09:25→19:49)
[2019-05-02] MEDS: PHENYTOIN SODIUM 50 MG/ML, 2ML IVPush SCH ×2 (09:25→19:49)
[2019-05-02] MEDS: AZITHROMYCIN 500 MG TABLET PO SCH (09:25)
[2019-05-02 09:32] LABS: ALBUMIN 3.6 g/dL (3.4-5.0); ANION GAP 9 mmol/L (5-15); CALCIUM 8.7 mg/dL (8.5-10.1); CHLORIDE 103 mmol/L (98-107)
[2019-05-02 09:35] LABS: ALANINE AMINOTRANSFERASE 86 U/L (12-78); ALKALINE PHOSPHATASE 172 U/L (45-117); BILIRUBIN,TOTAL 2.8 mg/dL (0.2-1.0); CREATININE 0.89 mg/dL (0.7-1.3); TOTAL PROTEIN 6.7 g/dL (6.4-8.2)
[2019-05-02 09:52] LABS: ABSOLUTE RETICS # 0.12 x10^6/uL (0.5-1.5); RETICULOCYTE COUNT % 5.29 % (0.5-1.5)
[2019-05-02 10:02] LABS: MEAN CORPUSCULAR HEMOGLOBIN 33.2 pg (27.5-34.5); MEAN CORPUSCULAR VOLUME 94.7 fL (81-97); MEAN PLATELET VOLUME 6.8 fL (7.4-10.4); PLATELET COUNT 319 x10^3/uL (130-400); RED BLOOD COUNT 2.74 x10^6/uL (4.38-5.82); RED CELL DISTRIBUTION WIDTH 17.1 % (9.4-14.8)
[2019-05-02 10:23] LABS: BASOPHILS # (AUTO) 0.04 x10^3/uL (0-0.1); BASOPHILS % (AUTO) 0 % (0-1); EOSINOPHILS # (AUTO) 0.18 x10^3/uL (0-0.4); EOSINOPHILS % (AUTO) 1 % (1-7); LYMPHOCYTES # (AUTO) 4.25 x10^3/uL (1-3.4); LYMPHOCYTES % (AUTO) 32 % (22-44); MD SCAN; MONOCYTES # (AUTO) 0.84 x10^3/uL (0.2-0.8); MONOCYTES % (AUTO) 6 % (2-9); NEUTROPHILS # (AUTO) 7.88 x10^3/uL (1.8-6.8); NEUTROPHILS % (AUTO) 60 % (42-75)
[2019-05-02 14:38] VITALS: BP 107/60
[2019-05-02 19:03] VITALS: BP 108/54
[2019-05-03 00:56] VITALS: BP 109/58
[2019-05-03 04:51] LABS: ALANINE AMINOTRANSFERASE 74 U/L (12-78); ALBUMIN 3.1 g/dL (3.4-5.0); ANION GAP 8 mmol/L (5-15); CALCIUM 8.3 mg/dL (8.5-10.1); CHLORIDE 105 mmol/L (98-107); CREATININE 0.67 mg/dL (0.7-1.3)
[2019-05-03 04:53] LABS: ALKALINE PHOSPHATASE 149 U/L (45-117); BILIRUBIN,TOTAL 2.4 mg/dL (0.2-1.0)
[2019-05-03 05:24] LABS: RED BLOOD COUNT 2.41 x10^6/uL (4.38-5.82)
[2019-05-03 05:25] LABS: ABSOLUTE RETICS # 0.115 x10^6/uL (0.5-1.5); RETICULOCYTE COUNT % 5.87 % (0.5-1.5)
[2019-05-03 05:51] LABS: MEAN CORPUSCULAR HEMOGLOBIN 32.5 pg (27.5-34.5); MEAN CORPUSCULAR HGB CONC 34.5 g/dL (33.2-36.2); MEAN CORPUSCULAR VOLUME 94.2 fL (81-97); MEAN PLATELET VOLUME 6.7 fL (7.4-10.4); PLATELET COUNT 265 x10^3/uL (130-400); RED BLOOD COUNT 2.44 x10^6/uL (4.38-5.82); RED CELL DISTRIBUTION WIDTH 17.2 % (9.4-14.8)
[2019-05-03 05:55] LABS: BASOPHILS # (AUTO) 0.04 x10^3/uL (0-0.1); BASOPHILS % (AUTO) 0 % (0-1); EOSINOPHILS # (AUTO) 0.06 x10^3/uL (0-0.4); EOSINOPHILS % (AUTO) 1 % (1-7); LYMPHOCYTES # (AUTO) 1.54 x10^3/uL (1-3.4); LYMPHOCYTES % (AUTO) 16 % (22-44); MD SCAN; MONOCYTES # (AUTO) 0.75 x10^3/uL (0.2-0.8); MONOCYTES % (AUTO) 8 % (2-9); NEUTROPHILS # (AUTO) 7.45 x10^3/uL (1.8-6.8); NEUTROPHILS % (AUTO) 76 % (42-75)
[2019-05-03] MEDS: AZITHROMYCIN 500 MG TABLET PO SCH (08:02)
[2019-05-03] MEDS: FOLIC ACID 1 MG TABLET PO SCH (08:02)
[2019-05-03] MEDS: DEXAMETHASONE 4 MG TABLET PO SCH ×3 (08:03→16:56)
[2019-05-03] MEDS: DOCUSATE 100 MG CAPSULE PO SCH ×2 (08:03→19:42)
[2019-05-03] MEDS: PHENYTOIN SODIUM 50 MG/ML, 2ML IVPush SCH ×2 (08:12→19:42)
[2019-05-03 08:23] VITALS: BP 117/61
[2019-05-03 13:00] VITALS: BP 106/60
[2019-05-03 17:03] VITALS: BP 114/63
[2019-05-03 19:05] VITALS: BP 115/63
[2019-05-04 00:43] VITALS: BP 114/60
[2019-05-04 07:13] VITALS: BP 121/61
[2019-05-04] MEDS: DOCUSATE 100 MG CAPSULE PO SCH ×2 (08:48→21:05)
[2019-05-04] MEDS: DEXAMETHASONE 4 MG TABLET PO SCH ×3 (08:48→21:05)
[2019-05-04] MEDS: AZITHROMYCIN 500 MG TABLET PO SCH (08:48)
[2019-05-04] MEDS: FOLIC ACID 1 MG TABLET PO SCH (08:48)
[2019-05-04] MEDS: PHENYTOIN SODIUM 50 MG/ML, 2ML IVPush SCH ×2 (08:49→21:04)
[2019-05-04 09:51] LABS: ALBUMIN 3.1 g/dL (3.4-5.0); ANION GAP 6 mmol/L (5-15); CALCIUM 8.5 mg/dL (8.5-10.1); CHLORIDE 106 mmol/L (98-107)
[2019-05-04 09:55] LABS: ALANINE AMINOTRANSFERASE 72 U/L (12-78); ALKALINE PHOSPHATASE 145 U/L (45-117); BILIRUBIN,TOTAL 2.4 mg/dL (0.2-1.0); CREATININE 0.77 mg/dL (0.7-1.3)
[2019-05-04 10:25] LABS: MEAN CORPUSCULAR HEMOGLOBIN 33.3 pg (27.5-34.5); MEAN CORPUSCULAR VOLUME 95.2 fL (81-97); MEAN PLATELET VOLUME 6.8 fL (7.4-10.4); PLATELET COUNT 279 x10^3/uL (130-400); RED BLOOD COUNT 2.43 x10^6/uL (4.38-5.82)
[2019-05-04 10:36] LABS: BASOPHILS # (AUTO) 0.03 x10^3/uL (0-0.1); BASOPHILS % (AUTO) 0 % (0-1); EOSINOPHILS # (AUTO) 0.06 x10^3/uL (0-0.4); EOSINOPHILS % (AUTO) 1 % (1-7); LYMPHOCYTES % (AUTO) 30 % (22-44); MD SCAN; MONOCYTES # (AUTO) 0.89 x10^3/uL (0.2-0.8); MONOCYTES % (AUTO) 10 % (2-9); NEUTROPHILS # (AUTO) 5.29 x10^3/uL (1.8-6.8); NEUTROPHILS % (AUTO) 59 % (42-75)
[2019-05-04 10:47] LABS: ABSOLUTE RETICS # 0.083 x10^6/uL (0.5-1.5); RED BLOOD COUNT 2.43 x10^6/uL (4.38-5.82); RETICULOCYTE COUNT % 7.64 % (0.5-1.5)
[2019-05-04 12:40] VITALS: BP 122/60
[2019-05-04] MEDS ORDERED: GADOTERATE 10 MMOL/20 ML SYR ONE (17:42)
--- NOTE | 2019-05-04 17:47 | NUR ---
Green nursing activity sheet intiated: Pt to walk 2-3 times a day with or without FWW Addendum: 05/04/19 at 1748 by Daly Lombardo PT Amended: Links added.
[2019-05-04 18:45] VITALS: BP 112/59
[2019-05-05 01:46] VITALS: BP 117/56
[2019-05-05 06:58] VITALS: BP 122/67
[2019-05-05] MEDS: AZITHROMYCIN 500 MG TABLET PO SCH (08:39)
[2019-05-05] MEDS: PHENYTOIN SODIUM 50 MG/ML, 2ML IVPush SCH ×2 (08:39→20:39)
[2019-05-05] MEDS: DOCUSATE 100 MG CAPSULE PO SCH ×2 (08:39→20:39)
[2019-05-05] MEDS: FOLIC ACID 1 MG TABLET PO SCH (08:40)
[2019-05-05] MEDS: DEXAMETHASONE 4 MG TABLET PO SCH ×3 (08:40→17:06)
[2019-05-05 12:27] VITALS: BP 126/69
[2019-05-05 20:04] VITALS: BP 101/54
[2019-05-06 02:03] VITALS: BP 101/59
[2019-05-06 07:20] VITALS: BP 111/59
[2019-05-06] MEDS: FOLIC ACID 1 MG TABLET PO SCH (07:51)
[2019-05-06] MEDS: DOCUSATE 100 MG CAPSULE PO SCH (07:51)
[2019-05-06] MEDS: AZITHROMYCIN 500 MG TABLET PO SCH (07:51)
[2019-05-06] MEDS: DEXAMETHASONE 4 MG TABLET PO SCH ×2 (07:51→12:30)
[2019-05-06] MEDS: PHENYTOIN SODIUM 50 MG/ML, 2ML IVPush SCH (07:51)
[2019-05-06] MEDS ORDERED: PHEN100C PO (09:25)
[2019-05-06] MEDS ORDERED: DEXA4TAB66 PO (09:25)
[2019-05-06] MEDS ORDERED: PHENYTOIN 100 MG CAPSULE PO SCH (09:30)
[2019-05-06] MEDS: HYDROcodone/APAP 5/325 TABLET PO PRN (10:53)
[2019-05-06 12:51] VITALS: BP 116/69
== END 2019-05-06 15:34 | disposition home or self-care (01) | DRG 25 ==
LOC: ED 17:41 → EDIP 18:32 → 4NW 19:41 → CCU 04-23 18:18 → 4NW 04-24 15:20 → DCLOUNGE 05-06 13:21
PROVIDERS: ADMIT Internal Medicine; ATTEND Hospitalist
PROC: 0FB13ZX Excision of Right Lobe Liver, Percutaneous Approach, Diagnostic (ICD-10-PCS; 2019-04-21)
PROC: 03HY32Z Insertion of Monitoring Device into Upper Artery, Percutaneous Approach (ICD-10-PCS; 2019-04-23)
PROC: 30233R1 Transfusion of Nonautologous Platelets into Peripheral Vein, Percutaneous Approach (ICD-10-PCS; 2019-04-23)
PROC: 30233N1 Transfusion of Nonautologous Red Blood Cells into Peripheral Vein, Percutaneous Approach (ICD-10-PCS; 2019-04-23)
PROC: 07DR3ZX Extraction of Iliac Bone Marrow, Percutaneous Approach, Diagnostic (ICD-10-PCS; 2019-04-23)
PROC: 00B00ZZ Excision of Brain, Open Approach (ICD-10-PCS; principal; 2019-04-23 17:00)
DX: C79.31 Secondary malignant neoplasm of brain (principal); G93.6 Cerebral edema; I62.9 Nontraumatic intracranial hemorrhage, unspecified; D58.9 Hereditary hemolytic anemia, unspecified; C78.7 Secondary malignant neoplasm of liver and intrahepatic bile duct; C78.00 Secondary malignant neoplasm of unspecified lung; D59.1 Other autoimmune hemolytic anemias; E46 Unspecified protein-calorie malnutrition; G81.94 Hemiplegia, unspecified affecting left nondominant side; Z51.5 Encounter for palliative care; C43.9 Malignant melanoma of skin, unspecified; D72.820 Lymphocytosis (symptomatic); Z68.25 Body mass index [BMI] 25.0-25.9, adult; I25.10 Atherosclerotic heart disease of native coronary artery without angina pectoris; Z85.820 Personal history of malignant melanoma of skin
CPT/HCPCS: 36415; 36430; 38222; 47000; 70552; 70553; 71260; 74177; 77012; 77290; 77334; 77470; 80048; 80053; 80185; 81001; 81210; 82247; 82248; 82330; 82595; 82607; 82784; 82803; 82947; 83010; 83516; 83605; 83615; 83883; 84132; 84145; 84155; 84165; 84295; 84439; 84443; 84481; 85014; 85025; 85045; 85060; 85097; 85362; 85379; 85384; 85610; 86038; 86140; 86157; 86160; 86200; 86225; 86235; 86255; 86256; 86376; 86431; 86663; 86664; 86665; 86704; 86705; 86706; 86707; 86738; 86803; 86850; 86870; 86880; 86900; 86901; 86906; 86922; 86923; 86941; 87040; 87081; 87086; 87340; 87350; 87389; 88184; 88185; 88237; 88264; 88280; 88305; 88307; 88311; 88313; 88341; 88342; 93005; 96361; 96374; 96375; 99156; 99157; 99291; C1713; G0378; J0171; J0690; J1100; J1165; J2250; J2405; J2704; J2710; J3010; Q9967; A4648; A9575; C1781; J0360; J2310; J7030; P9016; P9035

== ENCOUNTER 2019-06-24 20:41 | Inpatient (IN) | payer MEDICARE ==
[~2019-06-24] VITALS: Ht 170.2 cm; Wt 71.4 kg
[~2019-06-24 20:41] MED LIST: CHOL200074 PO; DEXA4TAB66 PO; MULT-717 PO; PHEN100C PO
--- NOTE | 2019-06-24 20:52 | NUR ---
[facility] FROM [facility]. PT HAD LABS DONE IN AM AND WAS SENT TO [facility] FOR NEEDED BLOOD TRANSFUSION. [facility] DID NOT HAVE BLOOD THAT MATCHED PT AND WAS SENT TRANSFER. PT DENIES CP, SOB, NO DIZZYNESS, SLIGHT WEAKNESS. NO N/V. RECENT BRAIN SURGERY 2 WEEKS AGO W RADIATION. LAST RADIATION SESSION 2 WEEKS AGO.
--- NOTE | 2019-06-24 21:02 | NUR ---
report from rj torres
--- NOTE | 2019-06-24 21:04 | NUR ---
REPORT TO BRIT
[2019-06-24 21:37] LABS: ALBUMIN 3.3 g/dL (3.4-5.0); ANION GAP 5 mmol/L (5-15); CALCIUM 8.8 mg/dL (8.5-10.1); CHLORIDE 107 mmol/L (98-107); CREATININE 0.75 mg/dL (0.7-1.3)
--- NOTE | 2019-06-24 22:10 | NUR ---
blood bank called and said they are working on preparing the blood
[2019-06-24 22:12] LABS: MEAN CORPUSCULAR HEMOGLOBIN 37.3 pg (27.5-34.5); MEAN CORPUSCULAR HGB CONC 35.9 g/dL (33.2-36.2); MEAN CORPUSCULAR VOLUME 103.9 fL (81-97); MEAN PLATELET VOLUME 6.7 fL (7.4-10.4); PLATELET COUNT 383 x10^3/uL (130-400); RED BLOOD COUNT 1.56 x10^6/uL (4.38-5.82); RED CELL DISTRIBUTION WIDTH 20.9 % (9.4-14.8)
[2019-06-24 22:16] LABS: MD YES
[2019-06-24 22:19] LABS: ANISOCYTOSIS 1+; BAND#(MANUAL) 0.05 x10^3/uL; BANDS%(MANUAL) 1 % (0-7); BASOS% (MANUAL) 2 % (0-1); EOS#(MANUAL) 0.21 x10^3/uL (0.0-0.4); EOS% (MANUAL) 4 % (1-7); LYMPH#(MANUAL) 1.61 x10^3/uL (1-3.4); LYMPHS% (MANUAL) 31 % (22-44); MONOS#(MANUAL) 0.62 x10^3/uL (0.3-2.7); MONOS% (MANUAL) 12 % (2-9); MYELOCYTES# (MANUAL) 0.05 x10^3/uL (0-0); MYELOCYTES% (MANUAL) 1 % (0-0); SEG#(MANUAL) 2.55 x10^3/uL (1.8-6.8); SEGS% (MANUAL) 49 % (42-75)
[2019-06-24 22:20] LABS: MICROCYTOSIS 1+; POLYCHROMASIA 1+
[2019-06-24 22:26] LABS: <PLATELET ESTIMATE> ADEQUATE; <PLT MORPHOLOGY> NORMAL PLT MORPH
[2019-06-24 22:30] LABS: OVALOCYTES 1+
--- NOTE | 2019-06-24 22:56 | NUR ---
report to JUAN ALBERTO carrera
[2019-06-24 23:24] VITALS: BP 139/62
[2019-06-24] MEDS ORDERED: POLYETHYLENE GLYCOL 17 GM PACKET PO PRN (23:30)
[2019-06-24] MEDS ORDERED: BISACODYL 10 MG SUPP PR PRN (23:30)
[2019-06-24] MEDS ORDERED: ACETAMINOPHEN 325 MG TABLET PO PRN (23:30)
[2019-06-24] MEDS ORDERED: ONDANSETRON ODT 4 MG PO PRN (23:30)
[2019-06-25] VITALS (12 sets, daily range): BP systolic 107–125; BP diastolic 43–66
[2019-06-25] MEDS: CHOLECALCIFEROL 1,000 UNIT TABLET PO SCH (08:21)
[2019-06-25] MEDS: SENNA/DOCUSATE TABLET PO SCH (08:21)
[2019-06-25] MEDS: MULTIVITAMINS/MINERALS TABLET PO SCH (08:21)
[2019-06-25] MEDS: SODIUM CHLORIDE FLUSH 10ML SYR IVF SCH ×3 (08:22→22:37)
[2019-06-25 08:58] LABS: MEAN CORPUSCULAR HEMOGLOBIN 35.1 pg (27.5-34.5); MEAN CORPUSCULAR HGB CONC 34.6 g/dL (33.2-36.2); MEAN CORPUSCULAR VOLUME 101.4 fL (81-97); MEAN PLATELET VOLUME 6.7 fL (7.4-10.4); PLATELET COUNT 366 x10^3/uL (130-400); RED BLOOD COUNT 2.23 x10^6/uL (4.38-5.82); RED CELL DISTRIBUTION WIDTH 20.1 % (9.4-14.8)
[2019-06-25 09:13] LABS: MD YES
[2019-06-25 09:22] LABS: ANISOCYTOSIS 1+; BANDS%(MANUAL) 2 % (0-7); BASOS#(MANUAL) 0.05 x10^3/uL (0-0.1); BASOS% (MANUAL) 1 % (0-1); EOS#(MANUAL) 0.21 x10^3/uL (0.0-0.4); EOS% (MANUAL) 4 % (1-7); LYMPH#(MANUAL) 1.61 x10^3/uL (1-3.4); LYMPHS% (MANUAL) 31 % (22-44); MICROCYTOSIS 1+; MONOS#(MANUAL) 0.42 x10^3/uL (0.3-2.7); MONOS% (MANUAL) 8 % (2-9); MYELOCYTES% (MANUAL) 2 % (0-0); OVALOCYTES 1+; POLYCHROMASIA 1+; SEGS% (MANUAL) 52 % (42-75)
[2019-06-25 09:23] LABS: <PLATELET ESTIMATE> ADEQUATE; <PLT MORPHOLOGY> NORMAL PLT MORPH
[2019-06-25 10:25] LABS: ABSOLUTE RETICS # 0.128 x10^6/uL (0.5-1.5); RETICULOCYTE COUNT % 12.87 % (0.5-1.5)
[2019-06-25 10:34] LABS: ALBUMIN 3.7 g/dL (3.4-5.0); ANION GAP 5 mmol/L (5-15); CALCIUM 9.1 mg/dL (8.5-10.1); CHLORIDE 108 mmol/L (98-107)
[2019-06-25 10:41] LABS: ALANINE AMINOTRANSFERASE 25 U/L (12-78); ALKALINE PHOSPHATASE 171 U/L (45-117); BILIRUBIN,TOTAL 3.5 mg/dL (0.2-1.0); CREATININE 0.78 mg/dL (0.7-1.3); TOTAL PROTEIN 7.4 g/dL (6.4-8.2)
[2019-06-25 10:48] LABS: % IRON SATURATION 19 % (20-55); IRON LEVEL 55 mcg/dL (65-175); TOTAL IRON BINDING CAPACITY 285 mcg/dL (250-450)
[2019-06-25 11:06] LABS: RED BLOOD COUNT 2.6 x10^6/uL (4.38-5.82)
[2019-06-25 14:32] LABS: BILIRUBIN,TOTAL 3.7 mg/dL (0.2-1.0)
[2019-06-25 14:35] LABS: BILIRUBIN, DIRECT 0.7 mg/dL (0.1-0.2)
[2019-06-25] MEDS ORDERED: ONDANSETRON 8 MG, DEXAMETHASONE 10 MG in SODIUM CHLORIDE 0.9% 50 ML IVPB ONE (15:00)
[2019-06-25] MEDS ORDERED: FAMOTIDINE 20 MG TABLET PO ONE (15:00)
[2019-06-25] MEDS ORDERED: DIPHENHYDRAMINE 25 MG CAPSULE PO ONE (15:00)
[2019-06-25 15:20] LABS: OCCULT BLOOD NEGATIVE (NEGATIVE)
[2019-06-25] MEDS ORDERED: RITUXIMAB 700 MG in SODIUM CHLORIDE 0.9% 250 ML IV ONE (15:30)
[2019-06-25] MEDS: FOLIC ACID 1 MG TABLET PO SCH (22:37)
[2019-06-26 00:39] VITALS: BP 108/60
[2019-06-26 04:44] LABS: ALANINE AMINOTRANSFERASE 23 U/L (12-78); ALBUMIN 3.3 g/dL (3.4-5.0); ANION GAP 5 mmol/L (5-15); CALCIUM 8.9 mg/dL (8.5-10.1); CHLORIDE 112 mmol/L (98-107); CREATININE 0.71 mg/dL (0.7-1.3)
[2019-06-26 04:46] LABS: ALKALINE PHOSPHATASE 164 U/L (45-117); TOTAL PROTEIN 6.7 g/dL (6.4-8.2)
[2019-06-26 05:18] LABS: MEAN CORPUSCULAR HEMOGLOBIN 34.6 pg (27.5-34.5); MEAN CORPUSCULAR HGB CONC 34.7 g/dL (33.2-36.2); MEAN CORPUSCULAR VOLUME 99.8 fL (81-97); MEAN PLATELET VOLUME 6.6 fL (7.4-10.4); PLATELET COUNT 371 x10^3/uL (130-400); RED BLOOD COUNT 2.45 x10^6/uL (4.38-5.82)
[2019-06-26 05:38] LABS: MD YES
[2019-06-26 05:40] LABS: ANISOCYTOSIS 1+; BAND#(MANUAL) 0.16 x10^3/uL; BANDS%(MANUAL) 4 % (0-7); LYMPH#(MANUAL) 0.57 x10^3/uL (1-3.4); LYMPHS% (MANUAL) 14 % (22-44); METAMYELOCYTES# (MANUAL) 0.04 x10^3/uL (0-0); METAMYELOCYTES% (MANUAL) 1 % (0-1); MICROCYTOSIS 1+; MONOS#(MANUAL) 0.37 x10^3/uL (0.3-2.7); MONOS% (MANUAL) 9 % (2-9); MYELOCYTES# (MANUAL) 0.04 x10^3/uL (0-0); MYELOCYTES% (MANUAL) 1 % (0-0); POLYCHROMASIA 1+; SEG#(MANUAL) 2.91 x10^3/uL (1.8-6.8); SEGS% (MANUAL) 71 % (42-75)
[2019-06-26 05:41] LABS: <PLATELET ESTIMATE> ADEQUATE; <PLT MORPHOLOGY> NORMAL PLT MORPH; OVALOCYTES 1+
[2019-06-26 06:37] VITALS: BP 119/65
[2019-06-26] MEDS: FOLIC ACID 1 MG TABLET PO SCH (08:42)
[2019-06-26] MEDS: CHOLECALCIFEROL 1,000 UNIT TABLET PO SCH (08:42)
[2019-06-26] MEDS: MULTIVITAMINS/MINERALS TABLET PO SCH (08:42)
[2019-06-26] MEDS: SENNA/DOCUSATE TABLET PO SCH (08:42)
[2019-06-26] MEDS: SODIUM CHLORIDE FLUSH 10ML SYR IVF SCH (09:00)
[2019-06-26 09:23] LABS: BILIRUBIN, DIRECT 0.8 mg/dL (0.1-0.2)
[2019-06-26 09:24] LABS: BILIRUBIN,INDIRECT 2.3 mg/dL (0.0-2.0); BILIRUBIN,TOTAL 3.1 mg/dL (0.2-1.0)
[2019-06-26 12:53] VITALS: BP 110/57
[2019-06-26] MEDS ORDERED: PRED10TA PO (12:53)
[2019-06-26] MEDS ORDERED: FOLI-17 PO (12:54)
== END 2019-06-26 14:46 | disposition home or self-care (01) | DRG 809 ==
LOC: ED 21:30 → EDIP 22:30 → 4NW 23:14 → DCLOUNGE 06-26 14:29
PROVIDERS: ADMIT Internal Medicine; ATTEND Hospitalist
PROC: 30233N1 Transfusion of Nonautologous Red Blood Cells into Peripheral Vein, Percutaneous Approach (ICD-10-PCS; principal; 2019-06-25)
DX: D59.1 Other autoimmune hemolytic anemias (principal); C79.31 Secondary malignant neoplasm of brain; D72.820 Lymphocytosis (symptomatic); D75.89 Other specified diseases of blood and blood-forming organs; E87.5 Hyperkalemia; Z66 Do not resuscitate; Z60.2 Problems related to living alone; E79.0 Hyperuricemia without signs of inflammatory arthritis and tophaceous disease; Z85.820 Personal history of malignant melanoma of skin; Z79.899 Other long term (current) drug therapy
CPT/HCPCS: 36415; 36430; 80048; 80053; 82040; 82247; 82248; 82272; 82607; 82728; 83010; 83540; 83550; 83615; 83735; 84100; 84550; 85025; 85045; 86850; 86870; 86880; 86900; 86922; 86923; 93306; 93356; 99285; G0378; J1100; J2405; J7050; J7512; J9312; P9016; Q0163

== ENCOUNTER 2019-06-24 20:43 | Emergency (ER) | payer MEDICARE | END 2019-06-24 20:47 | disposition home or self-care (01) | LOC: ED 20:45 | DX: Z02.9 Encounter for administrative examinations, unspecified (principal) ==

== ENCOUNTER 2019-07-05 08:37 | Outpatient (CLI) | payer MEDICARE ==
[~2019-07-05 08:37] MED LIST changes: +BINI15TA PO; +ENCO75CA PO; +FOLI-17 PO; +PRED10TA PO; +PRED1TAB19 PO
== END 2019-07-05 23:59 | disposition home or self-care (01) ==
LOC: ROC 08:37
PROVIDERS: ATTEND Radiology Radiation Oncology
DX: Z02.9 Encounter for administrative examinations, unspecified (principal)